=== PATIENT | male | born 1990 | race Caucasian/White ===

== ENCOUNTER 2016-11-02 21:50 | Emergency (ER) | payer OTHER ==
[~2016-11-02] VITALS: Ht 180.3 cm; Wt 84.1 kg
[2016-11-02 22:02] VITALS: BP 131/58; PULSE 50; RESP 18; TEMP 98.3; O2SAT 98
--- NOTE | 2016-11-02 22:24 | PD ---
HPI Chief Complaint: Abdominal Pain Time Seen by Provider: 22:14 Travel History International Travel<30 days: No Contact w/Intl Traveler<30days: No Traveled to known affect area: No History of Present Illness HPI 26-year-old male here for evaluation of epigastric abdominal discomfort. The patient states that for the last 4 days or so he has been having intermittent epigastric abdominal discomfort described as a tightness. He states he is under a lot of stress at school lately and believes that this may be the culprit. History of appendectomy. He denies fevers or chills. No nausea or vomiting. No modifying factors. PFSH Social History Tobacco Use: No Allergies-Medications (Allergen,Severity, Reaction): Coded Allergies: No Known Allergies (Unverified , 11/02/16) Reported Meds & Prescriptions Reported Meds & Active Scripts Active Carafate (Sucralfate) 1 Gm Tab 1 Gm PO TID On empty stomach Protonix (Pantoprazole Sodium) 40 Mg Tab 40 Mg PO DAILY Review of Systems Except as stated in HPI: all other systems reviewed are Neg Physical Exam Narrative GENERAL: Well-developed, well-nourished, comfortable, no apparent distress. SKIN: Focused skin assessment warm/dry. No rash. HEAD: Atraumatic. Normocephalic. EYES: Pupils equal and round. No scleral icterus. No injection or drainage. ENT: Mucous membranes pink and moist. CARDIOVASCULAR: Regular rate and rhythm. No murmur appreciated. RESPIRATORY: No accessory muscle use. Clear to auscultation. Breath sounds equal bilaterally. GASTROINTESTINAL: Abdomen soft, nondistended. Mild epigastric tenderness without peritoneal signs. Rest of abdomen is soft and nontender. Negative Harrison sign. Normal bowel sounds. MUSCULOSKELETAL: No obvious deformities. No clubbing. No cyanosis. No edema. NEUROLOGICAL: Awake and alert. No obvious cranial nerve deficits. Motor grossly within normal limits. Normal speech. PSYCHIATRIC: Appropriate mood and affect; insight and judgment normal. Data Data Last Documented VS Vital Signs Date Time Temp Pulse Resp B/P Pulse Ox O2 Delivery O2 Flow Rate FiO2 11/02/16 22:54 98 Room Air 11/02/16 22:54 52 18 124/66 11/02/16 22:02 98.3 Orders Complete Blood Count With Diff (11/02/16 22:21) Comprehensive Metabolic Panel (11/02/16 22:21) Lipase (11/02/16 22:21) Iv Access Insert/Monitor (11/02/16 22:21) Ecg Monitoring (11/02/16 22:21) Oximetry (11/02/16 22:21) Pantoprazole Inj (Protonix Inj) (11/02/16 22:30) Sodium Chloride 0.9% Flush (Ns Flush) (11/02/16 22:30) Electrocardiogram (11/02/16 22:21) Al-Mag Hy-Si 40-40-4 Mg/Ml Liq (Mag-Al P (11/02/16 22:30) Lidocaine 2% Viscous (Xylocaine 2% Visco (11/02/16 22:30) Labs Laboratory Tests Test 11/02/16 22:40 White Blood Count 5.5 TH/MM3 Red Blood Count 4.51 MIL/MM3 Hemoglobin 13.6 GM/DL Hematocrit 38.9 % Mean Corpuscular Volume 86.2 FL Mean Corpuscular Hemoglobin 30.1 PG Mean Corpuscular Hemoglobin 34.8 % Concent Red Cell Distribution Width 12.2 % Platelet Count 226 TH/MM3 Mean Platelet Volume 7.7 FL Neutrophils (%) (Auto) 46.8 % Lymphocytes (%) (Auto) 41.8 % Monocytes (%) (Auto) 8.6 % Eosinophils (%) (Auto) 2.5 % Basophils (%) (Auto) 0.3 % Neutrophils # (Auto) 2.6 TH/MM3 Lymphocytes # (Auto) 2.3 TH/MM3 Monocytes # (Auto) 0.5 TH/MM3 Eosinophils # (Auto) 0.1 TH/MM3 Basophils # (Auto) 0.0 TH/MM3 CBC Comment DIFF FINAL Differential Comment Sodium Level 144 MEQ/L Potassium Level 3.9 MEQ/L Chloride Level 112 MEQ/L Carbon Dioxide Level 26.4 MEQ/L Anion Gap 6 MEQ/L Blood Urea Nitrogen 16 MG/DL Creatinine 0.97 MG/DL Estimat Glomerular Filtration 94 ML/MIN Rate Random Glucose 91 MG/DL Calcium Level 8.7 MG/DL Total Bilirubin 1.5 MG/DL Aspartate Amino Transf 13 U/L (AST/SGOT) Alanine Aminotransferase 19 U/L (ALT/SGPT) Alkaline Phosphatase 87 U/L Total Protein 7.0 GM/DL Albumin 4.0 GM/DL Lipase 106 U/L [facility] Medical Decision Making Medical Screen Exam Complete: Yes Emergency Medical Condition: Yes Interpretation(s) EKG: Sinus bradycardia with sinus arrhythmia, rate 50, normal axis, normal intervals, no acute ischemic abnormality. Differential Diagnosis Gastritis, peptic ulcer disease, pancreatitis, hepatobiliary disease Narrative Course Vital signs show heart rate 52, blood pressure 124/66, pulse ox 98% on room air , oral temp of 98.3F. CBC is unremarkable. CMP is unremarkable. Lipase is 106. EKG shows sinus bradycardia with a rate of 50. The patient reports that he is in good physical shape and does long distance swimming. Patient was given a dose of Protonix as well as a GI cocktail and reports improvement in symptoms. Patient is likely suffering from gastritis or peptic ulcer disease. He has mild epigastric tenderness. There are no peritoneal signs on exam. Negative Harrison sign. I do not believe that there is an acute intra-abdominal/surgical process to warrant imaging at this time. Plan is to start the patient on Protonix and Carafate. GI follow-up this week. Patient informed on when to return to the emergency department. He verbalizes understanding and agreement with plan. Diagnosis Primary Impression: Epigastric abdominal pain Referrals: Sugar Osullivan MD 1 week Respiratory Clinician Primary Care Physician 3 days Additional Instructions: Follow-up with a primary care physician this week. Follow-up with core man Dr. Osullivan or a core man of your choice this week. Return to the emergency department for worsening symptoms or any other concerns. Scripts Sucralfate (Carafate)1 Gm Tab1 Gm PO TID #60 TAB Ref 0 On empty stomach Prov:Didier Sen MD 11/02/16 Pantoprazole (Protonix)40 Mg Tab40 Mg PO DAILY #30 TAB Ref 2 Prov:Didier Sen MD 11/02/16 Disposition: 01 DISCHARGE HOME Condition: Stable Didier Sen MD Nov 02, 2016 22:24
[2016-11-02] MEDS ORDERED: LIDOCAINE VISCOUS 2% SOLN 15 ML UDC PO ONE (22:30)
[2016-11-02] MEDS ORDERED: PANTOPRAZOLE SODIUM 40 MG VIAL IVP ONE (22:30)
[2016-11-02] MEDS ORDERED: ALUMINUM/MAGNESIUM/SIMETH 30 ML CUP PO ONE (22:30)
[2016-11-02] MEDS ORDERED: SODIUM CHLORIDE 0.9% FLUSH 10 ML FLUSH IV FLUSH PRN (22:30)
[2016-11-02 22:52] LABS: AUTOMATED NEUTROPHIL # 2.6 TH/MM3 (1.8-7.7); BASOPHIL % 0.3 % (0.0-2.0); EOSINOPHIL # 0.1 TH/MM3 (0-0.4); EOSINOPHIL % 2.5 % (0.0-4.0); HEMATOCRIT 38.9 % (39.0-51.0); HEMO FLAGS DIFF FINAL; LYMPH % 41.8 % (9.0-44.0); LYMPHOCYTE # 2.3 TH/MM3 (1.0-4.8); MEAN CELL VOLUME 86.2 FL (80.0-100.0); MEAN CORPUSCULAR HEMOGLOBIN 30.1 PG (27.0-34.0); MEAN CORPUSCULAR HGB CONC 34.8 % (32.0-36.0); MONO % 8.6 % (0.0-8.0); NEUT % 46.8 % (16.0-70.0); PLATELET COUNT 226 TH/MM3 (150-450); RED BLOOD COUNT 4.51 MIL/MM3 (4.50-5.90); RED CELL DISTRIBUTION WIDTH 12.2 % (11.6-17.2); WHITE BLOOD COUNT 5.5 TH/MM3 (4.0-11.0)
[2016-11-02 22:54] VITALS: BP 124/66; PULSE 52; RESP 18; O2SAT 98
[2016-11-02 22:57] LABS: CHLORIDE 112 MEQ/L (98-107); POTASSIUM 3.9 MEQ/L (3.5-5.1); SODIUM (NA) 144 MEQ/L (136-145)
[2016-11-02 23:01] LABS: ANION GAP 6 MEQ/L (5-15); BICARBONATE 26.4 MEQ/L (21.0-32.0); BLOOD UREA NITROGEN 16 MG/DL (7-18)
[2016-11-02 23:04] LABS: ALT (GPT) 19 U/L (12-78); AST (GOT) 13 U/L (15-37); GLOMERULAR FILTRATION RATE 94 ML/MIN (>89)
[2016-11-02 23:05] LABS: TOTAL BILIRUBIN ADULT 1.5 MG/DL (0.2-1.0)
[2016-11-02 23:07] LABS: ALKALINE PHOSPHATASE 87 U/L (45-117)
[2016-11-02] MEDS ORDERED: PROT40TA PO (23:14)
[2016-11-02] MEDS ORDERED: CARA1TAB6 PO (23:14)
--- NOTE | 2016-11-03 18:15 | EKG ---
Date Performed: 11/02/2016 Time Performed: 22:28:36 PTAGE: 26 years EKG: SINUS BRADYCARDIA WITH SINUS ARRHYTHMIA BORDERLINE ECG NO PREVIOUS TRACING DOCTOR: Edward Trujillo Interpretating Date/Time 11/03/2016 18:12:02
== END 2016-11-03 00:13 | disposition home or self-care (01) ==
LOC: PHED 21:50
DX: R10.13 Epigastric pain (principal); R00.1 Bradycardia, unspecified; I49.8 Other specified cardiac arrhythmias
CPT/HCPCS: 80053; 83690; 85025; 93005; 96374; 99284; C9113